=== PATIENT | female | born 1980 | race Two or more races ===

== ENCOUNTER 2021-11-22 22:01 | Emergency (ER) | payer OTHER ==
[2021-11-22 22:22] VITALS: BP 133/86; PULSE 72; TEMP 98.1; BMI 28.3
[2021-11-22] MEDS ORDERED: ACETAMINOPHEN 500 MG TABLET (FP) PO ONE (22:50)
[2021-11-22] MEDS ORDERED: ACETAMINOPHEN 325 MG TABLET (FP) ONE (23:03)
== END 2021-11-23 04:27 | disposition home or self-care (01) ==
LOC: JER 22:01
DX: R51.9 Headache, unspecified (principal)
CPT/HCPCS: 70450-TC; 72125-TC; 99284-25